=== PATIENT | female | born 1970 | race Caucasian/White ===

== ENCOUNTER 2017-12-01 18:04 | Emergency (ER) | payer MEDICAID ==
[~2017-12-01] VITALS: Ht 157.5 cm; Wt 77.1 kg
--- NOTE | 2017-12-01 18:40 | NUR ---
PT [facility] IN WITH C/O WORSENING ON/OFF CHEST PAIN RADIATING TO THE BACK X 1 WEEK, COUGH AND EPISODES OF SOB. SEEN BY MD FOR EVAL. VSS. SAFETY AND COMFORT MEASURES PROVIDED. WILL MONITOR.
[2017-12-01 19:07] LABS: BASOPHILS # (AUTO) 0.1 /CMM (0.0-0.2); BASOPHILS % (AUTO) 0.7 % (0.0-2.0); EOSINOPHILS % (AUTO) 2.8 % (0.0-6.0); HEMATOCRIT 38 % (33-45); HEMOGLOBIN 13.3 g/dL (11.5-14.8); LYMPHOCYTES % (AUTO) 32.1 % (20.0-44.0); MEAN CORPUSCULAR HGB CONC 35 g/dl (31.0-36.0); MEAN CORPUSCULAR VOLUME 84 fL (82-100); MONOCYTES # (AUTO) 0.7 /CMM (0.1-1.30); MONOCYTES % (AUTO) 5.7 % (2.0-12.0); NEUTROPHILS # (AUTO) 7.3 /CMM (1.8-8.9); NEUTROPHILS % (AUTO) 58.7 % (43.0-81.0); PLATELET COUNT (AUTO) 266 /CMM (150-450); RDW COEFFICIENT OF VARIATION 12.3 (11.5-15.0); RED BLOOD CELL COUNT(AUTO) 4.57 MIL/uL (4.0-5.2); WHITE BLOOD COUNT (AUTO) 12.5 K/uL (4.3-11.0)
[2017-12-01 19:18] LABS: CALCIUM, SERUM 9.4 mg/dL (8.5-10.1); CARBON DIOXIDE 27 mmol/L (21-32); CHLORIDE 103 mmol/L (98-107); GLUCOSE 115 mg/dL (74-106); POTASSIUM 3.7 mmol/L (3.5-5.1); SODIUM SERUM 138 mmol/L (136-145); UREA NITROGEN, BLOOD 12 mg/dL (7-18)
[2017-12-01 19:28] LABS: TROPONIN I < 0.017 ng/mL (0.00-0.056)
[2017-12-01 19:36] LABS: D-DIMER 0.23 mg/L(FEU (0.17-0.50); INR 0.96 (0.87-1.13)
[2017-12-01] MEDS ORDERED: HYDROCODONE/APAP 10/325MG 1 EA TABLET ONE (19:59)
[2017-12-01] MEDS ORDERED: ONDANSETRON 4 MG TAB.RAPDIS ONE (19:59)
[2017-12-01] MEDS ORDERED: HYDROCODONE/APAP 10/325MG 1 EA TABLET PO ONE (20:00)
[2017-12-01] MEDS ORDERED: ONDANSETRON 4 MG TAB.RAPDIS SL ONE (20:00)
--- NOTE | 2017-12-01 21:06 | NUR ---
IV removed. Catheter intact and site benign. Pressure and 4x4 applied to site. No bleeding noted.Patient discharged to home in stable condition. Written and verbal after care instructions given. Patient verbalizes understanding of instruction. ambulatory with a steady gait
[2017-12-01 21:07] VITALS: BP 127/74
== END 2017-12-01 21:11 | disposition home or self-care (01) ==
LOC: ER 18:06
DX: R07.89 Other chest pain (principal)
CPT/HCPCS: 36415; 71045-TC; 80048-TC; 84484-TC; 85025-TC; 85378-TC; 85730-TC; A4606; J3490; Q0162; Z7610

== ENCOUNTER 2018-10-26 19:32 | Emergency (ER) | payer SELFPAY ==
[~2018-10-26] VITALS: Ht 170.2 cm; Wt 72.6 kg
--- NOTE | 2018-10-26 19:55 | NUR ---
PT BIB FAMILY FROM HOME C/C CHRONIC UPPER BACK PAIN RADIATING TO R ARM AND CHEST PAIN X 3 MONTHS. STATES SOB AND C/O CHRONIC LEG PAIN. PT ON MONITOR IN BED 4 WITH FAMILY AT [facility]. AOX4. NAD NOTED. RESP EVEN AND UNLABORED. WILL CONTINUE TO MONITOR.
[2018-10-26 20:28] VITALS: BP 128/72
--- NOTE | 2018-10-26 20:31 | NUR ---
URINE COLLECTED AND SENT TO LAB
--- NOTE | 2018-10-26 20:34 | NUR ---
TECH AT BEDSIDE FOR EKG
[2018-10-26] MEDS ORDERED: KETOROLAC TROMETHAMINE INJ 60 MG/2 ML VIAL IM ONE ×2 (21:00→21:10)
--- NOTE | 2018-10-26 21:20 | NUR ---
Patient discharged to home in stable condition. Written and verbal after care instructions given. Patient verbalizes understanding of instruction. PT AMBULATORY WITH STEADY GAIT ACCOMPANIED BY FAMILY.
== END 2018-10-26 21:21 | disposition home or self-care (01) ==
LOC: ER 19:35
DX: M54.41 Lumbago with sciatica, right side (principal)
CPT/HCPCS: 84703; 93005; 96372; 99284; A4606; J1885